=== PATIENT | male | born 1955 | race Caucasian/White ===

== ENCOUNTER 2018-07-28 21:35 | Inpatient (IN) | payer OTHER ==
[~2018-07-28] VITALS: Ht 188 cm; Wt 110.9 kg
--- NOTE | ~2018-07-28 | 2DMMODE ---
[facility] [address] [place] [address] 2 D/M-MODE ECHOCARDIOGRAM Name: ELDA LEVY Room #: 457-P [facility] IN ..#: [id number] Admission: 07/29/18 Attend Phys: Abhinav Green Discharge: Date of : 55 Date of Service: 08/03/18 0845 Report #: [id number] THIS REPORT FOR: //name// APPROVED REPORT Study performed: 08/03/2018 08:08:44 EXAM: Comprehensive 2D, Doppler, and color-flow Echocardiogram Patient Location: Bedside Room #: [facility] Status: routine BSA: 2.37 HR: 112 bpm BP: 110/61 mmHg Rhythm: Tachycardia Other Information Study Quality: Technically Limited/uncooperative patient. Wanted me to stop. Exam not fully complete Indications Hypoxia. Hx: paraplegia. 2D Dimensions IVSd: 11.80 (7-11mm) LVOT Diam: 22.74 (18-24mm) LVDd: 42.62 mm PWd: 11.89 (7-11mm) LVDs: 32.11 (25-40mm) Aortic Root: 35.65 mm Mitral Valve E/A Ratio: 0.7 MV Decel. Time: 206.89 ms MV E Max Toy.: 0.73 m/s MV A Toy.: 1.05 m/s MV PHT: 60.00 ms Pulmonary Valve PV Peak Toy.: 1.20 m/s PV Peak Gr.: 5.73 mmHg Tricuspid Valve TR Peak Toy.: 2.85 m/s TR Peak Gr.: 32.60 mmHg Left Ventricle [facility] [address] [address] 2 D/M-MODE ECHOCARDIOGRAM Name: ELDA LEVY Room #: 457-P [facility] IN [facility].#: [id number] Admission: 07/29/18 Attend Phys: Abhinav Green Discharge: Date of : 55 Date of Service: 08/03/18 0845 Report #: [id number] The left ventricle is normal size. Regional wall motion is grossly normal. Mild concentric left ventricular hypertrophy. Left ventricular systolic function is normal. LVEF is 50-55%. Mild diastolic dysfunction is present (impaired relaxation pattern). Right Ventricle The right ventricle is normal size. The right ventricular systolic function is normal. Atria The left atrium size is normal. The right atrium size is normal. Aortic Valve The aortic valve is normal in structure. No aortic regurgitation is present. There is no aortic valvular stenosis. Mitral Valve The mitral valve is normal in structure. Mild mitral regurgitation. Tricuspid Valve The tricuspid valve is normal in structure. Trace to mild tricuspid regurgitation. Estimated PAP is 33mmHg plus the right atrial pressure. Pulmonic Valve Pulmonic valve is not well visualized. Great Vessels The aortic root is normal in size. IVC is not visualized. Pericardium There is no pericardial effusion. Left pleural effusion noted. <Conclusion> Left ventricular systolic function is normal. Regional wall motion is grossly normal. LVEF is 50-55%. Mild diastolic dysfunction The aortic valve is normal in structure. No aortic regurgitation or stenosis The mitral valve is normal in structure. Mild mitral regurgitation. [facility] [address] [address] 2 D/M-MODE ECHOCARDIOGRAM Name: ELDA LEVY Room #: 457-P [facility] IN ..#: [id number] Admission: 07/29/18 Attend Phys: Abhinav Green Discharge: Date of : 55 Date of Service: 08/03/18844 Report #: [id number] Pulmonary artery pressure of approximately 40mmHg There is no pericardial effusion. <ELECTRONICALLY SIGNED> By: Luis Felipe Foster MD, FACC 08/03/18844 4 4 Luis Felipe Foster MD, FACC /INF
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
--- NOTE | ~2018-07-28 | EKG ---
[address] [employer] [place] [address] ELECTROCARDIOGRAM REPORT Name: ELDA LEVY Room #: 214-P ADM IN M.R.#: [id number] Admission: 07/29/18 Attend Phys: Abhinav Campos Discharge: Date of : 55 Report #: [id number] THIS REPORT FOR: //name// [facility] ED Test Date: 2018-07-28 Test Time: 22:28:39 Pat Name: ELDA LEVY Department: Room: 214 Gender: M Convention Manager: BHAKTI : 1955 Requested By: Estefani Molina Order Number: [id number] MD: Luis Felipe Foster Measurements Intervals [place] Rate: 93 P: MI: QRS: 84 QRSD: 133 T: 44 QT: 364 QTc: 453 Interpretive Statements Sinus rhythm Right bundle branch block No previous ECG available for comparison Electronically Signed On 07-29-2018 8:53:48 CDT by Luis Felipe Foster [email or web address] <ELECTRONICALLY SIGNED> By: Luis Felipe Foster MD, [facility] 07/29/18 0853 [id number] 2228 Luis Felipe Foster MD, FACC /EPI
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
--- NOTE | ~2018-07-28 | PATH ---
[facility] [address] [place] [address] PATHOLOGY RPT PROCEDURE Name: JED LEVY Room #: 218-P [facility] IN M.R.#: [id number] Admission: 07/29/18 Date of : 55 Discharge: Report #: [id number] Path Case #: [id number] [facility] Accession Number: [id number] . 01 Material submitted: . SACRAL WOUND DEBRIDEMENT . 01 Clinical history: . Sacral wound, heel wounds . 02 Diagnosis: Skin with underlying soft tissue "sacral wound debridement": - Extensive epidermal necrosis with acute inflammation forming microabscesses and inflammation extending into the underlying fat with acute panniculitis and fat necrosis. (SHA:kalpesh; 08/03/2018) QMS/08/03/2018 . 02 Electronically signed: . Hemanth Vargas MD, Pathologist NPI- [id number] . 01 Gross description: . The specimen is received in formalin, labeled "Jed Levy, sacral wound debridement". Received are multiple segments of dusky mayo-cota to mayo-brown skin admixed with underlying yellow-cota to necrotic-appearing soft tissue measuring 18.8 x 14.9 x 6.6 cm in aggregate dimensions. The specimen is submitted representatively in cassette A1. (CAA; 08/02/2018) QAC/QAC . 02 Pathologist provided ICD-10: I96, L08.9, M79.3 . 02 CPT . 559988 Specimen Comment: A courtesy copy of this report has been sent to Specimen Comment: [phone], . Specimen Comment: Report sent to / DR LOCKHART Specimen Comment: A duplicate report has been generated due to demographic updates. Performed at: 01 [facility] [address] [id number] MD Ruddy Cosby MD Phone: [phone] Performed at: [address] [address] PATHOLOGY RPT PROCEDURE Name: JED LEVY Room #: 218-P [facility] IN M.R.#: [id number] Admission: 07/29/18 Date of : 55 Discharge: Report #: [id number] Path Case #: [id number] [address] [place] [id number] MD Christel Pratt MD Phone: [phone]
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
[2018-07-28 22:09] VITALS: BP 115/59
[2018-07-28 23:24] LABS: ABSOLUTE NEUTROPHILS 15.8 thou/uL (1.4-8.2); BASOPHILS 0.3 % (0.0-2.0); EOSINOPHILS 0.1 % (0.0-3.0); HEMATOCRIT 31.4 % (42.0-52.0); HEMOGLOBIN 9.7 gm/dL (14.0-18.0); LYMPHOCYTES 1.7 % (24.0-44.0); MCH 23.4 pg (26.0-34.0); MCV 75.4 fL (80.0-100.0); MONOCYTES 4.9 % (1.0-8.0); PLATELET COUNT 652 thou/uL (150-400); RBC 4.16 mil/uL (4.50-6.00); RDW 22.7 % (10.5-14.5)
[2018-07-28 23:33] LABS: ANION GAP 19 mmol/L (7-16); BUN 145 mg/dL (7-18); CALCIUM 8.6 mg/dL (8.5-10.1); CHLORIDE 100 mmol/L (98-107); CREATININE 3.6 mg/dL (0.7-1.3); GLUCOSE 144 mg/dL (74-106); SODIUM 127 mmol/L (136-145)
[2018-07-28] MEDS ORDERED: CENTRUM SILVER1 EAC2 PO (23:35)
[2018-07-28] MEDS ORDERED: ZINC GLUCONATE100 MG PO (23:36)
[2018-07-28 23:45] LABS: ALBUMIN 1.7 g/dL (3.4-5.0); SGOT 15 U/L (15-37); SGPT 19 U/L (30-65); TOTAL BILIRUBIN 0.3 mg/dL (<0.1-1.0); TOTAL PROTEIN 7.5 g/dL (6.4-8.2); TROPONIN-I <0.06 ng/mL (<0.06)
[2018-07-28 23:48] LABS: URINE CLARITY CLOUDY; URINE COLOR YELLOW
[2018-07-28 23:50] LABS: URINE SPECIFIC GRAVITY 1.005 (1.005-1.035)
[2018-07-28 23:51] LABS: URINE BILIRUBIN NEGATIVE (Negative); URINE GLUCOSE-RANDOM* NEGATIVE (Negative); URINE KETONES NEGATIVE (Negative)
[2018-07-28 23:53] LABS: URINE BLOOD 3+ (Negative); URINE NITRITE-REFLEX POSITIVE (Negative); URINE PROTEIN (DIPSTICK) 2+ (Negative); URINE UROBILINOGEN 0.2 E.U./dl (0.2-1.0)
[2018-07-28 23:56] LABS: CO2 8 mmol/L (21-32)
[2018-07-28 23:58] LABS: URINE LEUKOCYTES-REFLEX 3+ (Negative)
[2018-07-28 23:59] LABS: BACTERIA-REFLEX >30 Many /HPF (None Seen); CASTS None Seen /LPF (None Seen); CRYSTALS None Seen /LPF (None Seen); MUCUS None Seen strn/LPF (None Seen); SQUAMOUS None Seen /LPF (0-3); URINE RBC >20 Many /HPF (0-2); URINE WBC-REFLEX >25 Many /HPF (0-5)
[2018-07-29 00:13] LABS: ANISOCYTOSIS 3+; HYPOCHROMASIA 1+
[2018-07-29 00:14] LABS: PLATELET ESTIMATE NORMAL
[2018-07-29 02:02] VITALS: BP 116/41
[2018-07-29 02:45] VITALS: BP 116/41
[2018-07-29 06:31] LABS: HEMATOCRIT 29.4 % (42.0-52.0); HEMOGLOBIN 9.3 gm/dL (14.0-18.0); MCH 23.6 pg (26.0-34.0); MCHC 31.6 g/dL (28.0-37.0); MCV 74.8 fL (80.0-100.0); RBC 3.93 mil/uL (4.50-6.00); RDW 22.8 % (10.5-14.5); WBC 11.7 thou/uL (4.0-11.0)
[2018-07-29 06:45] LABS: CALCIUM 8.5 mg/dL (8.5-10.1); CREATININE 3.4 mg/dL (0.7-1.3); POTASSIUM 5.2 mmol/L (3.5-5.1)
[2018-07-29 06:52] LABS: CHOLESTEROL 84 mg/dL (<200); HDL CHOLESTEROL 35 mg/dL (>40); TC:HDL 2.4 Ratio (Not establshd)
[2018-07-29 07:13] LABS: LDL CHOLESTEROL 37 mg/dL (<100); TRIGLYCERIDE 64 mg/dL (<150); VLDL 13 mg/dL (<40)
[2018-07-29 08:46] VITALS: BP 104/65
[2018-07-29 11:46] VITALS: BP 101/64
[2018-07-29 14:27] VITALS: BP 119/55
[2018-07-29 16:26] LABS: APTT 31.5 Seconds (24.5-32.8); PROTIME 9.7 Seconds (9.3-11.4)
[2018-07-29 19:07] LABS: GLYCOHEMOGLOBIN (HGB A1C) 5.3 % (4.8-5.6)
[2018-07-29 20:42] VITALS: BP 118/69
[2018-07-30 00:24] VITALS: BP 121/60
[2018-07-30 04:45] VITALS: BP 101/55
[2018-07-30 08:49] LABS: CALCIUM 8.4 mg/dL (8.5-10.1); CREATININE 3.5 mg/dL (0.7-1.3); POTASSIUM 3.8 mmol/L (3.5-5.1)
[2018-07-30 09:10] VITALS: BP 128/88
[2018-07-30 14:06] VITALS: BP 107/49
[2018-07-30 15:05] LABS: BE(vivo) -23.1 mmol/L (-2 to +3); HCO3 4.7 mmol/L (22.0-26.0); PO2 114.5 mmHg (80.0-100.0); pH 7.089 (7.360-7.450); sO2 96.6 % (92.0-98.0)
[2018-07-30 20:02] VITALS: BP 148/92
[2018-07-31] VITALS (65 sets, daily range): BP systolic 68–150; BP diastolic 28–95
[2018-07-31 05:18] LABS: WBC 8.8 thou/uL (4.0-11.0)
[2018-07-31 05:21] LABS: MCHC 32.4 g/dL (28.0-37.0); RBC 2.84 mil/uL (4.50-6.00); RDW 22.6 % (10.5-14.5)
[2018-07-31 05:41] LABS: ALBUMIN 1.3 g/dL (3.4-5.0); CALCIUM 7.3 mg/dL (8.5-10.1); CREATININE 3.5 mg/dL (0.7-1.3); MAGNESIUM 1.2 mg/dL (1.8-2.4); PHOSPHORUS 6.9 mg/dL (2.5-4.9); TOTAL BILIRUBIN 0.3 mg/dL (<0.1-1.0); TOTAL PROTEIN 5.4 g/dL (6.4-8.2)
[2018-07-31 05:43] LABS: POTASSIUM 2.4 mmol/L (3.5-5.1)
[2018-07-31 06:01] LABS: HEMOGLOBIN 6.8 gm/dL (14.0-18.0)
[2018-07-31 07:55] LABS: HEMATOCRIT 20.1 % (42.0-52.0); HEMOGLOBIN 6.5 gm/dL (14.0-18.0)
[2018-07-31 15:07] LABS: HEMATOCRIT 23.3 % (42.0-52.0); HEMOGLOBIN 7.8 gm/dL (14.0-18.0)
[2018-08-01] VITALS (47 sets, daily range): BP systolic 94–130; BP diastolic 43–75
[2018-08-01 04:22] LABS: ALBUMIN 1.2 g/dL (3.4-5.0); CALCIUM 7.6 mg/dL (8.5-10.1); CREATININE 3.4 mg/dL (0.7-1.3); MAGNESIUM 1.6 mg/dL (1.8-2.4); PHOSPHORUS 4.1 mg/dL (2.5-4.9); TOTAL BILIRUBIN 0.3 mg/dL (<0.1-1.0); TOTAL PROTEIN 5.6 g/dL (6.4-8.2)
[2018-08-01 04:36] LABS: HEMATOCRIT 21.8 % (42.0-52.0); HEMOGLOBIN 7.3 gm/dL (14.0-18.0); MCH 24.7 pg (26.0-34.0); MCHC 33.5 g/dL (28.0-37.0); MCV 73.8 fL (80.0-100.0); RBC 2.96 mil/uL (4.50-6.00); RDW 22.8 % (10.5-14.5); WBC 9.4 thou/uL (4.0-11.0)
[2018-08-01 16:14] LABS: HEMATOCRIT 21.5 % (42.0-52.0); HEMOGLOBIN 7.2 gm/dL (14.0-18.0); MCHC 33.8 g/dL (28.0-37.0); RBC 2.9 mil/uL (4.50-6.00); RDW 22.8 % (10.5-14.5); WBC 10.3 thou/uL (4.0-11.0)
[2018-08-01 16:37] LABS: APTT 29.2 Seconds (24.5-32.8); PROTIME 9.9 Seconds (9.3-11.4)
[2018-08-02] VITALS (33 sets, daily range): BP systolic 118–152; BP diastolic 57–74
[2018-08-02 01:02] LABS: ALBUMIN 1.3 g/dL (3.4-5.0); CALCIUM 7.4 mg/dL (8.5-10.1); CREATININE 2.9 mg/dL (0.7-1.3); PHOSPHORUS 3.1 mg/dL (2.5-4.9); POTASSIUM 3.7 mmol/L (3.5-5.1)
[2018-08-02 04:44] LABS: HEMATOCRIT 21.7 % (42.0-52.0); HEMOGLOBIN 7.2 gm/dL (14.0-18.0); MCH 24.8 pg (26.0-34.0); MCHC 33.4 g/dL (28.0-37.0); MCV 74.2 fL (80.0-100.0); RBC 2.92 mil/uL (4.50-6.00); RDW 22.7 % (10.5-14.5)
[2018-08-02 04:53] LABS: ALBUMIN 1.3 g/dL (3.4-5.0); CALCIUM 7.3 mg/dL (8.5-10.1); CREATININE 2.8 mg/dL (0.7-1.3); POTASSIUM 3.4 mmol/L (3.5-5.1)
[2018-08-03 04:12] VITALS: BP 130/107
[2018-08-03 04:42] LABS: HEMATOCRIT 22.3 % (42.0-52.0); HEMOGLOBIN 7.1 gm/dL (14.0-18.0); MCH 24.3 pg (26.0-34.0); MCV 75.8 fL (80.0-100.0); RBC 2.94 mil/uL (4.50-6.00); RDW 22.9 % (10.5-14.5)
[2018-08-03 04:44] LABS: ALBUMIN 1.4 g/dL (3.4-5.0); CALCIUM 7.1 mg/dL (8.5-10.1); CREATININE 2.7 mg/dL (0.7-1.3); PHOSPHORUS 2.6 mg/dL (2.5-4.9)
[2018-08-03 05:42] LABS: POTASSIUM 2.7 mmol/L (3.5-5.1)
[2018-08-03 07:11] VITALS: BP 110/61
[2018-08-03 11:08] LABS: BE(vivo) -4.4 mmol/L (-2 to +3); PCO2 33.1 mmHg (35.0-45.0); PO2 56.3 mmHg (80.0-100.0); pH 7.398 (7.360-7.450); sO2 89.7 % (92.0-98.0)
[2018-08-03 12:46] VITALS: BP 101/65
[2018-08-03 19:45] VITALS: BP 99/61
[2018-08-04] MEDS ORDERED: MSL20MG/ML PO (08:54)
[2018-08-04] MEDS ORDERED: ATIVAN1 MG PO (08:55)
[2018-08-04 09:33] VITALS: BP 102/64
[2018-08-04 11:44] VITALS: BP 91/51
== END 2018-08-04 17:53 | disposition hospice, home (50) | DRG 579 ==
LOC: ER 21:35 → 2N 07-29 01:45 → EROBS 07-29 01:45 → 2N 07-29 02:50 → ICU 07-31 10:01 → 4W 08-02 19:50 → 2N 08-03 09:46 → 4W 08-03 09:46 → 2N 08-03 14:51
PROVIDERS: Hospitalist; Internal Medicine Nephrology; Internal Medicine Pulmonary Disease; Nurse Practitioner Family; Student in an Organized Health Care Education/Training Program; Surgery
DX: L89.154 Pressure ulcer of sacral region, stage 4 (principal); E43 Unspecified severe protein-calorie malnutrition; J96.01 Acute respiratory failure with hypoxia; I26.99 Other pulmonary embolism without acute cor pulmonale; N17.9 Acute kidney failure, unspecified; N39.0 Urinary tract infection, site not specified; G93.40 Encephalopathy, unspecified; E66.2 Morbid (severe) obesity with alveolar hypoventilation; E87.2 Acidosis; D62 Acute posthemorrhagic anemia; J98.11 Atelectasis; M86.8X0 Other osteomyelitis, multiple sites; G83.9 Paralytic syndrome, unspecified; E87.5 Hyperkalemia; L89.899 Pressure ulcer of other site, unspecified stage; I70.203 Unspecified atherosclerosis of native arteries of extremities, bilateral legs; M62.84 Sarcopenia; I87.2 Venous insufficiency (chronic) (peripheral); G31.84 Mild cognitive impairment of uncertain or unknown etiology; E86.0 Dehydration; L89.519 Pressure ulcer of right ankle, unspecified stage; N18.9 Chronic kidney disease, unspecified; E87.6 Hypokalemia; E83.42 Hypomagnesemia; I95.9 Hypotension, unspecified; Z66 Do not resuscitate; Z51.5 Encounter for palliative care; R91.8 Other nonspecific abnormal finding of lung field; Z53.29 Procedure and treatment not carried out because of patient's decision for other reasons; Z91.14 Patient's other noncompliance with medication regimen; Z60.2 Problems related to living alone; Z68.31 Body mass index [BMI] 31.0-31.9, adult; Z87.440 Personal history of urinary (tract) infections; Z93.3 Colostomy status; Z93.6 Other artificial openings of urinary tract status
CPT/HCPCS: 10045; 10047; 10078; 10081; 10797; 50010; 50101; 50386; 57091; 57119; 57120; 62110; 62900; 70005